=== PATIENT | male | born 1940 | race Caucasian/White ===

== ENCOUNTER → 2024-04-09 08:52 | Outpatient (REF) | payer MEDICARE, OTHER, SELFPAY ==
[2024-04-09 09:53] LABS: % Basophils 0.6 % (0-2); % Eosinophils 1.8 % (0-6); % Immature Granulocytes 0.4 % (0-0.5); % Monocytes 9.9 % (1.7-9.3); % Neutrophils 69.3 % (42.2-75.2); Absolute Basophils 0.1 10^3/uL (0-0.2); Absolute Eosinophils 0.2 10^3/uL (0-0.7); Absolute Lymphocytes 1.9 10^3/uL (1.2-3.4); Absolute Neutrophils 7.2 10^3/uL (1.4-6.5); Hematocrit 38.8 % (39.0-52.0); Hemoglobin 13.3 g/dL (13.0-18.0); Mean Corp Hgb Conc. 34.3 g/dL (33.0-37.0); Mean Corpuscular Hgb 32.8 pg (27.0-31.0); Mean Corpuscular Volume 95.8 fL (80.0-94.0); Nucleated Red Blood Cells % 0 % (-); Platelet Count 252 10^3/uL (130-400); Red Blood Cell Count 4.05 10^6/uL (4.70-6.10); Red Cell Dist. Width 13.7 % (11.5-14.5); White Blood Cell Count 10.4 10^3/uL (4.8-10.8)
[2024-04-09 11:13] LABS: ALT (SGPT) 32 U/L (0-50); AST (SGOT) 34 U/L (17-59); Albumin 4.1 g/dl (3.5-5.0); Alkaline Phosphatase 96 U/L (38-126); Blood Urea Nitrogen 15 mg/dl (9-20); Calcium 9.6 mg/dl (8.4-10.2); Carbon Dioxide 27 mmol/L (22-30); Chloride 105 mmol/L (98-107); Glucose 122 mg/dl (70-99); HDL Cholesterol 44 mg/dl; Iron 64 ug/dl (49-181); LDL Cholesterol, Calculated 75 mg/dl; Sodium 143 mmol/L (135-145); Total Bilirubin 0.8 mg/dl (0.2-1.3); Total Cholesterol 133 mg/dl (50-199); Total Protein 6.5 g/dl (6.3-8.2); Triglyceride 73 mg/dl (10-149); Very Low Density Lipoprotein 14 mg/dl (0-30); eGFR > 60.00
[2024-04-09 11:22] LABS: Percent Saturation 21 % (20-50); Total Iron Binding Capacity 292 ug/dl (261-462)
[2024-04-09 12:01] LABS: Vitamin B12 587 pg/ml (239-931)
[2024-04-09 13:15] LABS: Glycohemoglobin (HgbA1c) 6.1 % (4.0-5.6)
== END ==
LOC: REG 08:52
PROVIDERS: ATTENDING PHYSICIAN Physician Assistant
DX: I10 Essential (primary) hypertension (principal); I25.10 Atherosclerotic heart disease of native coronary artery without angina pectoris; I27.20 Pulmonary hypertension, unspecified; E78.00 Pure hypercholesterolemia, unspecified; G47.33 Obstructive sleep apnea (adult) (pediatric); E66.9 Obesity, unspecified; R97.20 Elevated prostate specific antigen [PSA]; D53.9 Nutritional anemia, unspecified; R73.01 Impaired fasting glucose
CPT/HCPCS: 36415; 80053; 80061; 82607; 82728; 83036; 83540; 83550; 85025; G0103

== ENCOUNTER 2024-08-03 20:04 | Inpatient (IN) | payer MEDICARE, OTHER, SELFPAY ==
[2024-08-03] VITALS (8 sets, daily range): BP systolic 150–198; BP diastolic 71–106; BMI 34.2
--- NOTE | 2024-08-03 16:03 | ED.GENMED ---
ED Provider Triage
<Asuncion Doe, THREAD MACHINE OPERATOR - Last Filed: 08/03/24 16:07>
-
Patient seen by provider in Triage?: Seen in Triage
Attestation: A medical screening examination has been initiated by a qualified medical provider. Based on the assessment performed at this time, it has been determined that an emergent medical condition may exist and the patient has been informed
that further medical evaluation and possible additional diagnostic testing may be needed.
HPI: 84-year-old male sent here from PCP office, saw DORYS Felix who was also in contact with cardiology Dr. Calvo for patient being in new onset atrial fib and high blood pressure.
Pt denies CP, per , has chronic PUGH, denies SOB at this time.
GENERAL: Alert , in no apparent distress
EYE: No visual abnormalities.
NECK: Trachea midline
ENT: No visible abnormalities.
LUNGS: No acute respiratory distress
NEUROLOGICAL: Alert and oriented
SKIN: Skin intact. No visible changes.
MUSCULOSKELETAL: Moving extremities normally
PSYCH: Normal and appropriate interaction.
This is a medical evaluation conducted in person to initiate diagnostic evaluation and provide initial therapeutics. Please see further documentation by the treating clinician.
History of Present Illness
<Asuncion Doe, THREAD MACHINE OPERATOR - Last Filed: 08/03/24 16:07>
General
Chief Complaint: Heart Rate Problem
Time Seen by Provider: 08/03/24 17:17
<Quentin Cohen, DO - Last Filed: 08/03/24 19:22>
General
Source: patient and spouse
Exam Limitations: none
Nursing documentation reviewed up to this point in time: agreed with
History of Present Illness
History of Present Illness:
84-year-old male presents emergency department due to new onset A-fib, elevated blood pressure at home, and not feeling well. He denies any chest pain. He was sent over by his primary care. He follows with Dr. Malik.
Past History
<Asuncion Doe, THREAD MACHINE OPERATOR - Last Filed: 08/03/24 16:07>
Past History
ED Past Medical History: CAD
ED Past Surgical History: None
<Quentin Cohen, DO - Last Filed: 08/03/24 19:22>
Past History
ED Past Medical History: HTN and Hypercholesterolemia
ED Past Surgical History: Cardiac (CABG)
Social History
Tobacco: Former smoker
Alcohol: None
Drug: None
Personal:
Living: with family
Employment: Retired
Review of Systems
<Quentin Cohen, DO - Last Filed: 08/03/24 19:22>
Review of Systems
Allergies reviewed?: Yes
All Other Systems: Not applicable
Constitutional: Reports no symptoms
EENT: Reports no symptoms
Respiratory: Reports no symptoms
Cardiac: Reports no symptoms
ABD/GI: Reports no symptoms
: Reports urgency
Musculoskeletal: Reports no symptoms
Skin: Reports no symptoms
Neurological: Reports no symptoms
Endocrine: Reports no symptoms
Hematologic/Lymphatic: Reports no symptoms
Psychiatric: Reports no symptoms
Phy Exam
<Quentin Cohen, DO - Last Filed: 08/03/24 19:22>
Physical Exam
Physical Exam:
Physical Exam
General: Blood pressure 181/86, heart rate 64
Neck: supple. no meningeal signs. normal posterior pharynx
Heart: s1/s2 irregular rhythm, normal rate, no murmur. equal radial
pulses.
HEENT: Pupils equal round reactive to light, EOMI
Lungs: Rales at bases bilaterally
Abdomen: normal bowel sounds. not tender. no CVAT
Neuro: alert and oriented. no focal neurological deficits cranial nerves II through XII intact
Skin: no rash
Psychiatric: well kept. interactive and cooperative
Extremities: Mild bilateral tibial edema. no calf tenderness. negative homans. good distal pulses
Scores
<Quentin Cohen, DO - Last Filed: 08/03/24 19:22>
Heart Failure Risk
Heart Failure Risk Score: Yes
History of Stroke or TIA: No
History of intubation for respiratory distress: No
Heart rate on ED arrival >/= 110: No
SaO2 <90% on arrival on room air: No
HR >/=110 during 3min walk test (or too ill to perform test): Yes
ECG has acute ischemic changes: No
Urea >/=12mmol/L (BUN 33.6mg/dL): No
Serum CO2>/=35mmol/L: No
Troponin I or T elevated to CO Level (0.4mg/dL): No
NT-proBNP >/=5,000ng/L (5,000pg/ml): No
HF Risk Score: 2
Admission Status: MEDIUM RISK 9.2% Consider observation or discharge to home with homecare & f/u visit to PCP/Electrocardiograph Repairer, or SNF for treatment
Course
<Asuncion Doe, THREAD MACHINE OPERATOR - Last Filed: 08/03/24 16:07>
Orders/Labs/Results
Orders:
Orders
08/03/24 16:06
Electrocardiogram (*1) Urgent
Reason for Study: Atrial Fibrillation
EKG- Treatment ONCE
CR Chest - 2 Views Urgent
Comment:
Reason For Exam: new onset a fib
08/03/24 16:20
Complete Blood Count/With Diff Urgent
Comprehensive Metabolic Panel Urgent
NT-proBNP Urgent
Comment: ADD ON
TSH Reflex To Free T4 Urgent
Troponin I Urgent
08/03/24 17:51
Add On- LAB Urgent
Tests Added?: pro-bnp
Abnormal Lab Results
08/03/24
16:20
WBC 10.9 H 10^3/uL
(4.8-10.8)
RBC 4.12 L 10^6/uL
(4.70-6.10)
Hgb 12.8 L g/dL
(13.0-18.0)
Hct 38.5 L %
(39.0-52.0)
MCH 31.1 H pg
(27.0-31.0)
Absolute Neuts (auto) 7.6 H 10^3/uL
(1.4-6.5)
Absolute Monos (auto) 1.0 H 10^3/uL
(0.1-0.6)
Lymphocytes % 18.8 L %
(20.5-51.1)
Glucose 124 H mg/dl
(70-99)
08/03/24 16:20
08/03/24 16:20
Vital Signs
Initial and Last Documented VS:
Initial Vital Signs
Temp Pulse Resp BP Pulse Ox
97.8 F 64 18 181/86 98
08/03/24 15:59 08/03/24 15:59 08/03/24 15:59 08/03/24 15:59 08/03/24 15:59
Last Documented Vital Signs
Temp Pulse Resp BP Pulse Ox
97.8 F 79 33 157/91 98
08/03/24 15:59 08/03/24 18:30 08/03/24 18:30 08/03/24 18:00 08/03/24 18:40
Harrisonlt;Quentin Cohen, DO - Last Filed: 08/03/24 19:22>
Orders/Labs/Results
Orders:
Orders
08/03/24 16:06
Electrocardiogram (*1) Urgent
Reason for Study: Atrial Fibrillation
EKG- Treatment ONCE
CR Chest - 2 Views Urgent
Comment:
Reason For Exam: new onset a fib
08/03/24 16:20
Complete Blood Count/With Diff Urgent
Comprehensive Metabolic Panel Urgent
NT-proBNP Urgent
Comment: ADD ON
TSH Reflex To Free T4 Urgent
Troponin I Urgent
08/03/24 17:51
Add On- LAB Urgent
Tests Added?: pro-bnp
Abnormal Lab Results
08/03/24
16:20
WBC 10.9 H 10^3/uL
(4.8-10.8)
RBC 4.12 L 10^6/uL
(4.70-6.10)
Hgb 12.8 L g/dL
(13.0-18.0)
Hct 38.5 L %
(39.0-52.0)
MCH 31.1 H pg
(27.0-31.0)
Absolute Neuts (auto) 7.6 H 10^3/uL
(1.4-6.5)
Absolute Monos (auto) 1.0 H 10^3/uL
(0.1-0.6)
Lymphocytes % 18.8 L %
(20.5-51.1)
Glucose 124 H mg/dl
(70-99)
08/03/24 16:20
08/03/24 16:20
Vital Signs
Initial and Last Documented VS:
Initial Vital Signs
Temp Pulse Resp BP Pulse Ox
97.8 F 64 18 181/86 98
08/03/24 15:59 08/03/24 15:59 08/03/24 15:59 08/03/24 15:59 08/03/24 15:59
Last Documented Vital Signs
Temp Pulse Resp BP Pulse Ox
97.8 F 79 33 157/91 98
08/03/24 15:59 08/03/24 18:30 08/03/24 18:30 08/03/24 18:00 08/03/24 18:40
<Quentin Cohen, DO - Last Filed: 08/03/24 19:22>
MDM/Problems Addressed
Differential Diagnosis Includes:
Rapid atrial flutter, CHF exacerbation
MDM/Problems Addressed:
84-year-old male with atrial flutter, new onset, new onset CHF. Admit to hospitalist.
Chronic conditions affecting care: CAD and Cardiomyopathy
Acute Exacerbation and/or Progression of Chronic Illness: CAD, Cardiomyopathy and Arrhythmia
<Quentin Cohen, DO - Last Filed: 08/03/24 19:22>
*Radiology
Radiology exam reviewed: radiology read reviewed (Chest x-ray shows CHF)
*Pulse Oximetry
Patient hypoxic: no
*EKG
Interpreted by ED Provider?: Yes
EKG Intrepretation Date: 08/03/24
EKG Intrepretation Time: 16:10
Interpretation: abnormal
Comparison EKG: changes noted
Heart Rate: 85
Rate: normal
Rhythm: atrial flutter
Gardner: normal axis
Interval: normal interval
QRS Pattern: left bundle branch block
Ischemia: non-specific ST changes
*Warehouse Worker 2Nd Shift Interpretation
Rate: normal
Interpretation: abnormal
Heart Rate: 75
Rhythm: atrial flutter
*Critical Care Note
Total Time (30-74mins, 75-104mins- exclusive of procedures): Not Applicable
Data Reviewed
Review of Other/Old Records Reveals: Labs
Prescriptions/Medications Considered But Not Given:
Cardioversion considered, but not indicated, unclear onset of atrial flutter
Further Testing Considered But Not Given:
CT chest not indicated
<Quentin Cohen, DO - Last Filed: 08/03/24 19:22>
Patient Management
Social determinants of health affecting care: Living situation and Strong social support
Discussion with other providers: Hospitalist
Escalation/DeEscalation of care consider admission/obs:
Admission indicated
ED Attending Note
<Asuncion Doe NP - Last Filed: 08/03/24 16:07>
-
Portions of this chart may have been created with voice recognition software.� Occasional wrong word or��sound alike� substitutions may have occurred due to the inherent limitations of voice recognition software.
Discharge Plan
Departure
Patient Disposition: Admit
Date of Disposition: 08/03/24
Time of Disposition: 19:21
Admit to: Telemetry
Presentation/result/management discussed w/ accepting MD/DO: Hospitalist
Patient with high blood pressure during this ER visit?: Yes
Condition: Fair
Discharge Problem:
Atrial flutter, Acute exacerbation of CHF (congestive heart failure)
Prescriptions:
No Action
metoprolol tartrate 50 MG tablet
50 mg PO BID Qty: 60 0RF
Referrals:
Diann Canales PA-C [Family Provider] -
Interventions
Interventions:
*Risk Screen - Suicide Last Done: 08/03/24 15:59
*General Assessment Last Done: 08/03/24 15:59
*Neglect/Abuse Screening Last Done: 08/03/24 15:59
ED- Fall Risk Assessment Last Done: 08/03/24 18:40
*ED COVID-19 Vaccine History Last Done: 08/03/24 18:40
ED- Cardiac Assessment Last Done: 08/03/24 18:40
ED- Pulmonary Assessment Last Done: 08/03/24 18:40
Discharge Date and Time
Print Language: WOLOF
[2024-08-03 16:29] LABS: % Basophils 0.5 % (0-2); % Eosinophils 1.7 % (0-6); % Immature Granulocytes 0.4 % (0-0.5); % Lymphocytes 18.8 % (20.5-51.1); % Monocytes 9.2 % (1.7-9.3); % Neutrophils 69.4 % (42.2-75.2); Absolute Basophils 0.1 10^3/uL (0-0.2); Absolute Eosinophils 0.2 10^3/uL (0-0.7); Absolute Lymphocytes 2.1 10^3/uL (1.2-3.4); Absolute Neutrophils 7.6 10^3/uL (1.4-6.5); Hematocrit 38.5 % (39.0-52.0); Hemoglobin 12.8 g/dL (13.0-18.0); Mean Corp Hgb Conc. 33.2 g/dL (33.0-37.0); Mean Corpuscular Hgb 31.1 pg (27.0-31.0); Mean Corpuscular Volume 93.4 fL (80.0-94.0); Mean Platelet Volume 9.3 fL (7.4-10.4); Nucleated Red Blood Cells % 0 % (-); Platelet Count 248 10^3/uL (130-400); Red Blood Cell Count 4.12 10^6/uL (4.70-6.10); Red Cell Dist. Width 13.1 % (11.5-14.5); White Blood Cell Count 10.9 10^3/uL (4.8-10.8)
[2024-08-03 16:51] LABS: ALT (SGPT) 33 U/L (0-50); AST (SGOT) 31 U/L (17-59); Albumin 4.3 g/dl (3.5-5.0); Alkaline Phosphatase 95 U/L (38-126); Blood Urea Nitrogen 16 mg/dl (9-20); Calcium 9.6 mg/dl (8.4-10.2); Carbon Dioxide 26 mmol/L (22-30); Chloride 106 mmol/L (98-107); Glucose 124 mg/dl (70-99); Potassium 4.9 mmol/L (3.5-5.1); Sodium 142 mmol/L (135-145); Total Bilirubin 1.3 mg/dl (0.2-1.3); Total Protein 7.1 g/dl (6.3-8.2); eGFR > 60.00
[2024-08-03 17:03] LABS: Troponin I < 0.012 ng/ml
[2024-08-03 17:22] LABS: TSH Reflex To Free T4 4.58 uIU/ml (0.47-4.68)
[2024-08-03 18:35] LABS: NT-proBNP 1190 pg/ml
--- NOTE | 2024-08-03 19:25 | HPS.HSE ---
Addendum entered and electronically signed by Manny Bermeo DO 08/03/24 20:38:
Patient seen and examined independently. Agree with findings and plan as set forth by JOSE Sethi.
Patient is an 84y M with PMH significant for ASCVD, hypertension and BPH who presents to ED for evaluation of abnormal EKG. Patient states that he has been feeling somewhat weak / fatigued for the past several days. He took his BP at home and
noted that it was elevated in the 170s systolic - which is unusual for him. He presented to his PCP office today for evaluation. EKG was done there which showed A-Fib / Flutter and patient was referred to the ED for evaluation.
Patient complains of an odd sensation in his chest. He denies any chest pain, palpitations, SOB, etc.
He has no prior history of A-Fib.
He was previously followed by [facility] - but was lost to follow-up about 2 years ago.
Ass:
New A-Fib / Flutter
Acute HF - Unknown Type
ASCVD
Benign Hypertension
FATUMA - Not compliant with PAP therapy
BPH
Obesity due to excess calories
Plan:
Admit for further evaluation and treatment.
IV Lasix daily for now and follow I/Os, daily weights, etc.
Update Echo.
Cardiology evaluation.
Continue usual outpatient CV med regimen with holding parameters for BP.
No need at present for rate controlling medications.
Begin Eliquis for stroke risk reduction.
Original Note:
Family Physician
-
Family Physician: Diann Canales
Chief Complaint
-
Fatigue
Hypertension
History of Present Illness
84-year-old male with past medical history for coronary artery disease status post CABG, hypertension, hyperlipidemia, BPH presented to us with elevated blood pressure. For past few days, his blood pressure were elevated in 170s. Patient was
feeling very fatigued and weak. He saw his PCP today, he was noted in A-fib at PCP office. his blood pressure were elevated. Patient denied any chest pain or short of breath. Patient denied any lower extremities edema or weight gain. Patient
denied any headache, dizziness or syncope. Patient denied any fever, chills. Patient denied any abdominal pain, nausea, vomiting, diarrhea. Patient denied dysuria hematuria
He was noted in A flutter in ER. Heart rate controlled. Chest x-ray with mild CHF. Patient received a dose of Lasix in ER. Admitting for further management
Medical History
Past Medical History
Past Medical History: Reports Other
Additional Past Medical History:
Hypertension
Diabetes
Left bundle branch block
Coronary artery disease
CVA
Sinus bradycardia
Hypertension
Past Surgical History: Reports Other
Additional Past Surgical History:
Status post coronary artery bypass graft
Bilateral cataract surgery
Detached continued
Angioplasty
Social History
Tobacco: Former Smoker
Alcohol: Daily (1-2 beers daily)
Drug: None
Personal:
Living: With Family
Family History
Family History: Not pertinent
Allergies / Home Medications
Allergies reflects when Allergies were last updated in [employer].
Home Medications with original date entered in [employer]
Allergy/Medication List:
Allergies
Allergy/AdvReac Type Severity Reaction Status Date / Time
[facility] Allergy Pharmacy Uncoded 08/03/24 15:48
to Review
Home Medications
ascorbic acid (vitamin C) 500 mg tablet (Vitamin C) 500 mg PO BID 08/03/24
aspirin 81 mg tablet,delayed release 81 mg PO DAILY 08/03/24
atorvastatin 80 mg tablet 80 mg PO DAILY 08/03/24
coenzyme Q10 100 mg capsule (CoQ-10) 100 mg PO BID 08/03/24
ezetimibe 10 mg tablet 10 mg PO DAILY 08/03/24
isosorbide mononitrate 60 mg tablet,extended release 24 hr 60 mg PO DAILY 08/03/24
lisinopril 40 mg tablet 40 mg PO DAILY 08/03/24
magnesium oxide 200 mg PO HS 08/03/24
nitroglycerin 0.4 mg sublingual tablet 0.4 mg sublingual [id number] PRN chest pain 08/03/24
omega 9-ddw-kpz-fish oil 1,000 mg (120 mg-180 mg) capsule (Fish Oil) 1 cap PO BID 08/03/24
tamsulosin 0.4 mg capsule 0.4 mg PO HS 08/03/24
therapeutic multivitamin 1 tab PO DAILY 08/03/24
vitamin K2 100 mcg capsule 100 mcg PO HS 08/03/24
Review of Systems
-
Constitutional: Reports Fatigue
EENT: Reports No Symptoms
Respiratory: Reports No Symptoms
Cardiac: Reports No Symptoms
Abdomen/GI: Reports No Symptoms
: Reports No Symptoms
Musculoskeletal: Reports No Symptoms
Skin: Reports No Symptoms
Neurological: Reports Weakness
Endocrine: Reports No Symptoms
Hematologic/Lymphatic: Reports No Symptoms
Psych: Reports No Symptoms
Physical Exam
Vital Signs
Vital Signs
Temp Pulse Resp BP Pulse Ox
97.8 F 79 33 157/91 98
08/03/24 15:59 08/03/24 18:30 08/03/24 18:30 08/03/24 18:00 08/03/24 18:40
Physical Exam
General: Well Developed, Well Nourished and No Apparent Distress
HEENT: NormoCephalic, Moist mucous membranes and Atraumatic
Respiratory: Clear
Cardiac: Irregular Rhythm; No Murmur or Rub
GI: Soft, Non Tender, Non Distended and Normal Bowel Sounds; No Organomegaly
Rectal: Deferred by Provider
Musculoskeletal: No Clubbing, No Cyanosis and No Edema
Skin: No Rash
Neuro: AO x 3 and Nonfocal/grossly intact
Psych: Calm
Laboratory Results
-
08/03/24 16:20
08/03/24 16:20
Laboratory Results
Total Bilirubin 1.3 mg/dl (0.2-1.3) 08/03/24 16:20
AST 31 U/L (17-59) 08/03/24 16:20
ALT 33 U/L (0-50) 08/03/24 16:20
Alkaline Phosphatase 95 U/L (38-126) 08/03/24 16:20
Troponin I < 0.012 ng/ml 08/03/24 16:20
Data Reviewed
-
Diagnostic Radiology: Report Reviewed by me
Lab Data: Labs Reviewed by me
Impression/Plan
-
# New onset a flutter
-EKG with a flutter with variable AV block with PVCs, left bundle branch block
-Heart rate controlled in ER
-started eliquis
-Cardiology consulted
# New onset congestive heart failure
-BNP 1190
-Chest x-ray with mild congestive heart failure
-Lasix once in ER
-defer lasix until seen by cardiology
-Strict ODALIS, daily weight, fluid restriction
-obtain ECHO
-Cardiology consulted
-last ECHO in 07/2021 with Low-normal systolic function; left ventricular ejection fraction is 50-55%
# Leukocytosis likely stress reaction
-WBC 10.9
-Patient is afebrile
-obtain urinalysis
# History of coronary artery disease
# History of coronary bypass graft
-Aspirin continued
# Hyperlipidemia
-Statin continued, Zetia continued
# Hypertension
-Isosorbide, lisinopril continued with hold parameters
# BPH
-Flomax continued
#FATUMA
-does not use c pap at home
# DVT prophylaxis
-eliquis
# CODE STATUS
-DNR
[2024-08-03] MEDS: LASIX 40 MG IV (20:00)
[2024-08-03 21:00] LABS: Urine Albumin Negative (Neg - Trace); Urine Bilirubin Negative (Negative); Urine Character Clear (Clear); Urine Color Yellow; Urine Glucose Negative (Negative); Urine Ketone Negative (Negative); Urine Leukocyte Negative (Negative); Urine Nitrite Negative (Negative); Urine Occult Blood Negative (Negative); Urine Urobilinogen Negative (Neg - 1+)
[2024-08-04] VITALS (8 sets, daily range): BP systolic 124–181; BP diastolic 54–82; BMI 33.0; BMI 32.9
--- NOTE | 2024-08-04 00:45 | PTCARENOTE ---
Pt recieved from ED at 0040. Pt pleasant, AAOX3, Absent of pain, VVS, and able to ambulate into room. Pt recpetive to room and call blackman. Pt bed in lowest position and call blackman within reach. Pt educated on importance of call blackman usage, pt relays
understanding and cooperation. Will continue with current plan of care.
[2024-08-04] MEDS: MAGNESIUM OXIDE 250 MG PO ×2 (01:24→21:58)
[2024-08-04] MEDS: FLOMAX 0.4 MG PO ×2 (01:24→21:58)
[2024-08-04] MEDS: ELIQUIS 5 MG PO ×3 (01:25→19:38)
--- NOTE | 2024-08-04 07:51 | CON.CAR ---
Addendum entered and electronically signed by Luke Gutierrez MD 08/05/24 11:15:
Atrial flutter is typical atrial flutter.
Addendum entered and electronically signed by Luke Gutierrez MD 08/04/24 12:38:
I saw and examined the patient.
The [employer] FLOOR [employer]NER's note was reviewed and I agree with the note.
Comment:
84-year-old man known to Dr. Malik with coronary artery disease status post CABG 2009, hypertension, dyslipidemia who presented to his PCP yesterday with a week of fatigue. He was found to be in new rate controlled atrial fibrillation so was
sent to the ER. He has been notably hypertensive with BPs 150s�180s/70s�100s. Heart rate has ranged from 60s to 100s. Labs are notable for creatinine 0.9, LDL 71, BNP 1190, troponin <0.012. CXR with minimal pulmonary edema. ECG shows atrial
flutter with variable block (HR 85), left bundle branch block. Echocardiogram with mildly reduced LV systolic function (EF 45%), global hypokinesis, normal RV function. His heart rate in atrial flutter is widely variable between 60 and 110. We
will not add any AV yudith blocking agents at this time given that heart rate is sometimes in the 50s. We will plan for ANDREW/cardioversion tomorrow. He has been started on apixaban 5 mg twice daily and will continue on this after discharge. Case
management to check pricing. I suspect that his EF is mildly reduced in the setting of arrhythmia. Would repeat echocardiogram as an outpatient once he is out of atrial flutter prior to initiating GDMT. He is being diuresed with Lasix 40 mg IV
daily. Can likely switch to p.o. chlorthalidone tomorrow which will help with volume retention and BPs. For his hypertension, he will continue lisinopril 40 mg daily and isosorbide 60 mg daily. After cardioversion we can see what his heart rates
are and potentially add carvedilol. Given his LDL above goal, we will switch his atorvastatin 80 mg to rosuvastatin 40 mg and continue ezetimibe. He can stop his aspirin given that he will be on systemic anticoagulation.
Addendum entered and electronically signed by JOSE Briggs 08/04/24 11:35:
Correction to below, in impression/plan it should read LBBB.
Original Note:
Consultation
Consultation Request
Date/Time Consultation Requested: 08/04/2024 00:45
Date/Time Consultation Performed: 08/04/2024 07:50
Requesting Provider: JOSE Sethi
Performing Provider: JOSE Godoy for Dr. Gutierrez
Reason for Consultation: New atrial flutter, HFpEF
Medical History
-
Chief Complaint: New atrial fibrillation found by PCP, fatigue, hypertension
History of Present Illness:
Naren Mckenzie is an 84-year-old male (known to Dr. Malik, his primary dentistry teacher), with coronary artery disease (2 previous angioplasties, specifics unknown, CABG 2009 in [place]), hypertension, dyslipidemia, PVD (no prior interventions), DJD, former
smoker, and obesity who presented to the emergency department after being evaluated by his PCP yesterday. He initially presented due to elevated blood pressure at home. He then endorsed fatigue. His commented on his shortness of breath. He
did not feel it was 'that bad'. He was found to be in atrial flutter, onset unknown. At present, he has no chest pain, shortness of breath, nor dizziness.
Past Medical History
Past Medical History: CAD, HTN, Hypercholesterolemia, NIDDM and Other (LBBB, FATUMA on CPAP, PVD)
Past Surgical History: Cardiac (CABG)
Social History
Tobacco: Former Smoker
Personal:
Living: With Family
Employment: Retired
Family History
Family History: Early CAD (Brother of an [place] at the age of 52.) and Other (Mother of heart failure at the age of 63. Father had myasthenia gravis and at the age of 82.)
Allergies / Home Medications
Allergy/AdvReac Type Severity Reaction Status Date / Time
[facility] Allergy Pharmacy Uncoded 08/03/24 15:48
to Review
�Medication �Instructions �Recorded �Confirmed �Type
ascorbic acid (vitamin C) 500 mg 500 mg PO BID 08/03/24 08/03/24 History
tablet (Vitamin C)
aspirin 81 mg tablet,delayed 81 mg PO DAILY 08/03/24 08/03/24 History
release
atorvastatin 80 mg tablet 80 mg PO DAILY 08/03/24 08/03/24 History
coenzyme Q10 100 mg capsule 100 mg PO BID 08/03/24 08/03/24 History
(CoQ-10)
ezetimibe 10 mg tablet 10 mg PO DAILY 08/03/24 08/03/24 History
isosorbide mononitrate 60 mg 60 mg PO DAILY 08/03/24 08/03/24 History
tablet,extended release 24 hr
lisinopril 40 mg tablet 40 mg PO DAILY 08/03/24 08/03/24 History
magnesium oxide 200 mg PO HS 08/03/24 08/03/24 History
nitroglycerin 0.4 mg sublingual 0.4 mg sublingual [id number] PRN 08/03/24 08/03/24 History
tablet chest pain
omega 6-miv-dsq-fish oil 1,000 mg 1 cap PO BID 08/03/24 08/03/24 History
(120 mg-180 mg) capsule (Fish Oil)
tamsulosin 0.4 mg capsule 0.4 mg PO HS 08/03/24 08/03/24 History
therapeutic multivitamin 1 tab PO DAILY 08/03/24 08/03/24 History
vitamin K2 100 mcg capsule 100 mcg PO HS 08/03/24 08/03/24 History
Review of Systems
-
History Source: Patient
All other systems: Negative unless noted
Constitutional: Fatigue
EENT: No Symptoms
Respiratory: No Symptoms
Cardiac: No Symptoms
Abdomen/GI: No Symptoms
: No Symptoms
Musculoskeletal: No Symptoms
Skin: No Symptoms
Neurological: No Symptoms
Endocrine: No Symptoms
Hematologic/Lymphatic: No Symptoms
Physical Exam
Vital Signs
Temp Pulse Resp BP Pulse Ox
98.6 F 81 18 157/82 96
08/04/24 03:00 08/04/24 03:00 08/04/24 03:00 08/04/24 03:00 08/04/24 03:00
Lab Results
Troponin I < 0.012 ng/ml 08/03/24 16:20
Uwy-I-Othvtzhyyaa Pept 1190 pg/ml 08/03/24 16:20
Physical Exam
General: Well Developed, Well Nourished, No Apparent Distress and Comfortable
HEENT: Normocephalic, Anicteric and Moist Mucous Membranes
Respiratory: Clear and Non Labored Respirations
Cardiac: S1/S2 and Regular Rhythm
Breast: Deferred by me
GI: Soft, Non Tender, Non Distended and Normal Bowel Sounds
Rectal: Deferred by Provider
Genito-urinary: No Costovertebral Tender
Musculoskeletal: No Clubbing, No Cyanosis and No Edema
Skin: Warm and Dry
Neuro: AO x 3
Hematologic/Lymphatic: No Lymphadenopathy
Psych: Calm
Impression / Plan
-
IMPRESSION/PLAN: 84M with CAD (2 previous angioplasties, specifics unknown, CABG 2009 in [place]), hypertension, dyslipidemia, PVD (no prior interventions), DJD, former smoker, and obesity who presented to the ER with new atrial flutter and PUGH ->
HFpEF
Primary dentistry teacher: Dr. Malik (last seen 07/2021)
Heart failure, presumed HFpEF, acute - NEW
-Diuresis with furosemide 40 mg IV twice daily
-Trend daily weight, I/O, and BMP with diuresis
-Case management to bermudez SGLT2
-Update echocardiogram
-HF education
Atrial flutter, onset unknown
-Rate controlled without AV yudith agent
-Oral Anticoagulation: Apixaban 5 mg twice daily, started this hospitalization
-[id number]: score at least 6 (Heart failure, HTN, age 75 or more, Diabetes Mellitus, Vascular disease)
-ANDREW/DCCV in am if TTE stable
CAD
-CABG in 2009 in [place], stop ASA now that he is on apixaban
-Continue medical therapy
HTN
-BP above goal on lisinopril 40mg and isosorbide mononitrate 60 mg
HLD, continue atorvastatin, most recent LDL by PCP above goal, transition to rosuvastatin, update fasting lipid panel as an outpatient in 8 weeks
RBBB, chronic
Type II DM, controlled, Hgba1c 6.1%, managed by PCP
PVD
Former smoker, continue cessation recommended
FATUMA on CPAP
Obesity, BMI 32.9
Data Reviewed
-
EKG: Report Reviewed by me (Atrial flutter with variable AV block, LBBB, rate 85)
Radiology: Report Reviewed by me (CXR: There is moderate cardiomegaly. Mild vascular congestion. Subtle interstitial prominence.)
Labs: Labs Reviewed by me
Old Records: Reviewed
[2024-08-04 08:11] LABS: % Basophils 0.8 % (0-2); % Eosinophils 2.3 % (0-6); % Immature Granulocytes 0.3 % (0-0.5); % Lymphocytes 18.5 % (20.5-51.1); % Neutrophils 65.1 % (42.2-75.2); Absolute Basophils 0.1 10^3/uL (0-0.2); Absolute Eosinophils 0.2 10^3/uL (0-0.7); Absolute Lymphocytes 1.8 10^3/uL (1.2-3.4); Absolute Monocytes 1.2 10^3/uL (0.1-0.6); Absolute Neutrophils 6.2 10^3/uL (1.4-6.5); Hematocrit 39.7 % (39.0-52.0); Hemoglobin 13.1 g/dL (13.0-18.0); Mean Corpuscular Hgb 31.3 pg (27.0-31.0); Mean Corpuscular Volume 94.7 fL (80.0-94.0); Mean Platelet Volume 10.1 fL (7.4-10.4); Nucleated Red Blood Cells % 0 % (-); Platelet Count 250 10^3/uL (130-400); Red Blood Cell Count 4.19 10^6/uL (4.70-6.10); White Blood Cell Count 9.5 10^3/uL (4.8-10.8)
[2024-08-04] MEDS: ASPIR LOW (ENTERIC COATED) 81 MG PO (08:50)
[2024-08-04] MEDS: ZETIA 10 MG PO (08:51)
[2024-08-04] MEDS: IMDUR (EXTENDED RELEASE) 60 MG PO (08:51)
[2024-08-04] MEDS: ZESTRIL 40 MG PO (08:51)
[2024-08-04] MEDS: LASIX 40 MG IV (08:53)
[2024-08-04 08:55] LABS: ALT (SGPT) 31 U/L (0-50); AST (SGOT) 29 U/L (17-59); Albumin 4.1 g/dl (3.5-5.0); Alkaline Phosphatase 90 U/L (38-126); Blood Urea Nitrogen 17 mg/dl (9-20); Calcium 9.2 mg/dl (8.4-10.2); Carbon Dioxide 27 mmol/L (22-30); Chloride 105 mmol/L (98-107); Direct Bilirubin 0.1 mg/dl (0.0-0.4); Estimated Creatinine Clearance 80 ml/min; Glucose 106 mg/dl (70-99); HDL Cholesterol 32 mg/dl; LDL Cholesterol, Calculated 71 mg/dl; Magnesium 1.8 mg/dl (1.6-2.3); Potassium 4.1 mmol/L (3.5-5.1); Sodium 143 mmol/L (135-145); Total Bilirubin 1.4 mg/dl (0.2-1.3); Total Cholesterol 117 mg/dl (50-199); Total Protein 6.6 g/dl (6.3-8.2); Triglyceride 74 mg/dl (10-149); Very Low Density Lipoprotein 14 mg/dl (0-30); eGFR > 60.00
[2024-08-04 10:25] LABS: TSH Reflex To Free T4 3.19 uIU/ml (0.47-4.68)
[2024-08-04] MEDS: ISMO 30 MG PO (10:48)
--- NOTE | 2024-08-04 12:02 | CM ---
CM reviewed chart, patient seen bedside, initial assessment completed. Patient resides with his in a single story home with basement, unsure how many steps to enter, reports they are new to the home. Patient has a cane, denies VN or SNF
history. Patient PCP Diann Canales, pharmacy [facility] in [place]. Patient denies insecurities at home. CM received consult for medication pricing: Eliquis 5 mg 2x daily, Farxiga 10 mg daily, Jardiance 10 mg daily. Patient reports recently
switching prescription plan, will need to get name of plan/member ID and will provide to CM, then will check coverage of medications. CM will continue to follow for all discharge planning needs.
Plan; home with , need to check cost of medication once patient confirms prescription plan
--- NOTE | 2024-08-04 16:47 | W.PN.HOSP.TC ---
Today's Communication/Plan
-
Assessment / Plan
Assessment / Plan
Acute HFmildly reduced EF, 45%, NYHA class II-IV
-2d echo global hypokinesis
-Related to arrhythmia
-IV diuretics
-Monitor UOP
-Follow renal function
Aflutter, new dx
-Unable to start AV yudith blocking agents
-Monitor
-Plan for ANDREW/DCCV
-CHADSVASC - 6
-Eliquis 5mg BID
CAD
-CABG, per Cards stop asa as now on eliquis
BPH
-COntinue flomax
FATUMA
-Noncomplaint CPAP
Anticipated Discharge: > 48 hours
Subjective/Interval History
-
Date of Service: August 04, 2024
seen and examined
no new comaplints
still in afib on tele
-rates between 50-110
Objective Data
-
Labs:
Laboratory Results
08/04/24
06:54
WBC 9.5
Hgb 13.1
Hct 39.7
Plt Count 250
Sodium 143
Potassium 4.1
Chloride 105
Carbon Dioxide 27
BUN 17
Creatinine 0.9
Glucose 106 H
Calcium 9.2
Total Bilirubin 1.4 H
AST 29
ALT 31
Alkaline Phosphatase 90
Vital Signs:
Vital Signs
Temp Pulse Resp BP Pulse Ox
98.0 F 69 16 124/61 94
08/04/24 15:41 08/04/24 15:41 08/04/24 15:41 08/04/24 15:41 08/04/24 15:41
I&O
08/03/24 08/04/24 08/05/24
06:59 06:59 06:59
Intake Total 120 / 120
Output Total 1100 / 1100
Balance -980 / -980
Physical Exam
-
General: Well Developed and Well Nourished
HEENT: Normocephalic and Atraumatic
Respiratory: Clear to Auscultation
Cardiac: S1/S2 and Irregular Rhythm
GI: Soft, Nontender, Nondistended and Normal Bowel Sounds
Musculoskeletal: No Edema
Skin: Warm
Neuro: Awake, Alert, Oriented and AO x 3
Hematologic / Lymphatic: Lymphadenopathy
[2024-08-04] MEDS: CRESTOR 40 MG PO (17:14)
[2024-08-05 03:05] VITALS: BP 128/66
[2024-08-05 06:00] VITALS: BMI 32.8
[2024-08-05 07:30] VITALS: BP 167/83
[2024-08-05 08:25] LABS: % Basophils 0.5 % (0-2); % Eosinophils 2.2 % (0-6); % Immature Granulocytes 0.4 % (0-0.5); % Lymphocytes 21.6 % (20.5-51.1); % Monocytes 11.3 % (1.7-9.3); Absolute Basophils 0.1 10^3/uL (0-0.2); Absolute Eosinophils 0.2 10^3/uL (0-0.7); Absolute Lymphocytes 2.2 10^3/uL (1.2-3.4); Absolute Monocytes 1.2 10^3/uL (0.1-0.6); Absolute Neutrophils 6.6 10^3/uL (1.4-6.5); Hemoglobin 13.3 g/dL (13.0-18.0); Mean Corp Hgb Conc. 34.1 g/dL (33.0-37.0); Mean Corpuscular Hgb 31.6 pg (27.0-31.0); Mean Corpuscular Volume 92.6 fL (80.0-94.0); Mean Platelet Volume 9.6 fL (7.4-10.4); Nucleated Red Blood Cells % 0 % (-); Platelet Count 259 10^3/uL (130-400); Red Blood Cell Count 4.21 10^6/uL (4.70-6.10); Red Cell Dist. Width 12.9 % (11.5-14.5); White Blood Cell Count 10.2 10^3/uL (4.8-10.8)
[2024-08-05] MEDS: LASIX 40 MG IV (08:52)
[2024-08-05] MEDS: IMDUR (EXTENDED RELEASE) 60 MG PO (08:53)
[2024-08-05] MEDS: ELIQUIS 5 MG PO (08:53)
[2024-08-05] MEDS: ZESTRIL 40 MG PO (08:53)
[2024-08-05] MEDS: ZETIA 10 MG PO (08:53)
[2024-08-05 09:11] LABS: Blood Urea Nitrogen 25 mg/dl (9-20); Calcium 9.5 mg/dl (8.4-10.2); Carbon Dioxide 24 mmol/L (22-30); Chloride 101 mmol/L (98-107); Estimated Creatinine Clearance 72 ml/min; Glucose 123 mg/dl (70-99); Potassium 4.1 mmol/L (3.5-5.1); Sodium 137 mmol/L (135-145); eGFR > 60.00
--- NOTE | 2024-08-05 10:27 | CM ---
Addendum entered by Ebonie Greenberg 08/05/24 14:58:
Patient seen bedside, for discharge today. Patient declining VN services at home. CM placed call to patients pharmacy- informed cost of Eliquis $295.63. Patient provided with coupon for 30 day trial. Per pharmacy- patient has Medicare part D. Per
patient, he recently changed prescription plans and is unsure of the plan. Patient aware to bring coupon to pharmacy. will provide transportation home.
Original Note:
CM reviewed chart, patient seen bedside. Patient reports he was unable to get prescription information yesterday- will call his now. Patient reports as he just transitioned to a new plan, his pharmacy does not have the information yet. CM
offered to call , patient declining and will call himself. CM will return to get prescription information to check cost of medications. CM will continue to follow for all discharge planning needs.
Plan; home with , need to check cost of prescriptions once information received.
--- NOTE | 2024-08-05 10:59 | PN.CDI ---
CDI
- -
CDI:
Physician Documentation Request
Admit Date: 08/03/24 20:04
Dear Cardiology,
Please review the following and provide your response in the progress notes.
Clinical Indicators:
- 08/04 Cardiology 'New atrial flutter'
- 'ECG shows atrial flutter with variable block...heart rate in atrial flutter is widely variable between 60 and 110'
- 08/03 EKG with atrial flutter with variable A-V block with PVCs, LBBB
- Atrial rate 250
If possible, please provide further specificity regarding atrial flutter, such as:
Typical Atrial Flutter - Type I: Classic or common atrial flutter, Rate is 240-340 beats/min. Usually responds to atrial pacing.
Atypical Atrial Flutter - Type II: Less common and more unstable. Rate is 340-440 beats/min. Less responsive to atrial pacing.
Other - please specify
Use of terms such as suspected, likely, concern for, or probable (associated with a specific diagnosis that is being evaluated, monitored, or treated as if it exists) are acceptable and can be coded in the inpatient setting, when documented at the
time of discharge.
Thank you,
Og Snowden RN
CDI Specialist
Please use your independent medical judgment in providing your response.
[2024-08-05 11:00] VITALS: BP 152/76
--- NOTE | 2024-08-05 13:02 | W.PN.CD ---
Today's Communication / Plan
-
ANDREW/DCCV today
assess for d/c in afternoon
continue eliquis 5mg bid
Impression / Plan
-
IMPRESSION/PLAN: 84M with CAD (2 previous angioplasties, specifics unknown, CABG 2009 in [place]), hypertension, dyslipidemia, PVD (no prior interventions), DJD, former smoker, and obesity who presented to the ER with new atrial flutter and PUGH ->
HFpEF
Primary treatment manager: Dr. Malik (last seen 07/2021)
Heart failure, mEF 45%
-improved s/p IV lasix
-transition to PO diuretic
-will repeat echo as outpatient in 4 weeks
Atrial flutter, typical
-Rate controlled without AV yudith agent
-Oral Anticoagulation: Apixaban 5 mg twice daily, started this hospitalization
-[id number]: score at least 6 (Heart failure, HTN, age 75 or more, Diabetes Mellitus, Vascular disease)
-ANDREW/DCCV today
CAD
-CABG in 2009 in [place], stopped ASA now that he is on apixaban
-Continue medical therapy
HTN
-BP above goal on lisinopril 40mg and isosorbide mononitrate 60 mg
-chlorthalindone added this admission
HLD: most recent LDL by PCP above goal, transition to rosuvastatin, update fasting lipid panel as an outpatient in 8 weeks
RBBB, chronic
Type II DM, controlled, Hgba1c 6.1%, managed by PCP
PVD
Former smoker, continue cessation recommended
FATUMA on CPAP
Obesity, BMI 32.9
Physical Exam
Vital Signs/Labs
Vital Signs
Temp Pulse Resp BP Pulse Ox
97.7 F 64 18 152/76 95
08/05/24 11:00 08/05/24 11:00 08/05/24 11:00 08/05/24 11:00 08/05/24 11:00
08/04/24 08/05/24 08/06/24
06:59 06:59 06:59
Actual Weight 109.996 kg 109.571 kg
08/05/24 07:37
08/05/24 07:37
Magnesium 1.8 mg/dl (1.6-2.3) 08/04/24 06:54
Triglycerides 74 mg/dl (10-149) 08/04/24 06:54
LDL Cholesterol, Calc 71 mg/dl 08/04/24 06:54
VLDL Cholesterol, Calc 14 mg/dl (0-30) 08/04/24 06:54
HDL Cholesterol 32 mg/dl 08/04/24 06:54
08/03/24
16:20
[id number] Pept 1190
LAB Results
08/03/24
16:20
Troponin I < 0.012
Physical Exam
Constitutional: No acute distress
EENT: Moist mucous membranes
Cardiovascular: Pedal edema is absent, JVD pressure is normal, Systolic murmur absent and Rhythm/rate is irregular
Respiratory: Respiratory effort normal and Lungs clear to auscul.
Neuro/Psych: AO x 3
Data Reviewed
-
Date of Service: August 05, 2024
Echo: Report Reviewed by me (TTE: EF 45%, no sig valve disease)
Labs: Labs Reviewed by me
--- NOTE | 2024-08-05 13:24 | W.PN.HOSP.TC ---
Today's Communication/Plan
-
For ANDREW/DCCV.
If successfully converted then can likely be discharged pending clearance from cardiology
No AV yudith blocking agents
Aspirin was discontinued
Started on Eliquis
Chlorthalidone was added onto antihypertensive regimen
Atorvastatin was discontinued
Crestor was started
More than 30 minutes spent in discharge including
Final examination of the patient
Summarizing hospital stay
Instructions for continuing care to all relevant caregivers
Preparation of discharge records, prescriptions, and referral forms
Total time spent (in minutes): 33min
Assessment / Plan
Assessment / Plan
Acute HFmildly reduced EF, 45%, NYHA class II-IV
-2d echo global hypokinesis
-Related to arrhythmia
-IV diuretics
-Monitor UOP
-Follow renal function
Aflutter, new dx
-Unable to start AV yudith blocking agents
-Monitor
-Plan for ANDREW/DCCV
-CHADSVASC - 6
-Eliquis 5mg BID
CAD
-CABG, per Cards stop asa as now on eliquis
BPH
-COntinue flomax
FATUMA
-Noncomplaint CPAP
Anticipated Discharge: Today
Subjective/Interval History
-
Date of Service: August 05, 2024
Seen and examined. Had just moved his bowels. No new complaints. No acute overnight events. Just waiting to go for ANDREW/DCCV
Objective Data
-
Labs:
Laboratory Results
08/05/24
07:37
WBC 10.2
Hgb 13.3
Hct 39.0
Plt Count 259
Sodium 137
Potassium 4.1
Chloride 101
Carbon Dioxide 24
BUN 25 H
Creatinine 1.0
Glucose 123 H
Calcium 9.5
Vital Signs:
Vital Signs
Temp Pulse Resp BP Pulse Ox
97.7 F 64 18 152/76 95
08/05/24 11:00 08/05/24 11:00 08/05/24 11:00 08/05/24 11:00 08/05/24 11:00
I&O
08/04/24 08/05/24 08/06/24
06:59 06:59 06:59
Intake Total 120 / 120 840 / 840
Output Total 1100 / 1100 800 / 800
Balance -980 / -980 40 / 40
Physical Exam
-
General: Well Developed, Well Nourished and No Apparent Distress
HEENT: Normocephalic and Atraumatic
Respiratory: Clear to Auscultation
Cardiac: S1/S2 and Irregular Rhythm
GI: Soft and Nontender
Skin: Warm
Neuro: Awake, Alert, Oriented and AO x 3
Psych: Calm
--- NOTE | 2024-08-05 13:27 | W.DCSUMMARY ---
Addendum entered and electronically signed by Dougie Reyes MD 08/08/24 17:32:
Acute HFmildly reduced EF, 45%, NYHA class II-IV
Original Note:
Discharge Summary
Discharge Data
Date of Admission: 08/03/24
Date of Discharge: 08/05/24
-
Pending Results: No
Hospital Course
84y M with PMH significant for ASCVD, hypertension and BPH
Presented with new onset atrial flutter with associated dyspnea on exertion concerning for acute on chronic HFpEF exacerbation. Significant improvement in shortness of breath after receiving IV diuretics which were eventually transition to p.o.
diuretic. Will require repeat 2D echocardiogram in 4 weeks as an outpatient with cardiology. Blood pressure was uncontrolled therefore chlorthalidone 25 mg daily was added.
In terms of the atrial flutter which was typical unfortunately unable to provide AV yudith agent as rates were in the 50s therefore it was elected to go towards ANDREW/DCCV. Cardioversion was successful per cardiology. Outpatient cardiology follow-up.
Started on Eliquis 5 mg twice a day with the recommendation to discontinue aspirin.
Due to higher than normal LDL even on max dose Lipitor. It was recommended to stop switch to Crestor 40 mg every night and to discontinue Lipitor altogether.
2d echo
CONCLUSIONS
Normal left ventricular size with mildly reduced systolic function. LVEF 45%.
Global hypokinesis.
Mild concentric left ventricular hypertrophy.
Normal right ventricular size and systolic function.
Mild mitral regurgitation.
Mild tricuspid regurgitation. Normal PASP.
Ectatic ascending aorta (3.9 cm).
Compared to prior echocardiogram on 07/21/2021, LVEF has decreased from 50-55%
to 45% with global hypokinesis. Patient is now in atrial flutter.
CXR
IMPRESSION:
Mild congestive heart failure.
Discharge Plan
-
Patient Disposition: Home with Home Care
Discharge Diagnosis/Procedures: Atrial flutter
Heart failure
Condition: Good
Diet: Low Fat, Low Cholesterol, 2 Gram Sodium, No added salt and Restrict fluids to 48 oz
Activity: As tolerated
Others Tests: Echo 4 weeks- office will call you to arrange
Other Services: Cardiac Rehab
Activity Restrictions/Additional Instructions:
Presented with new onset atrial flutter with associated dyspnea on exertion concerning for acute on chronic HFpEF exacerbation. Significant improvement in shortness of breath after receiving IV diuretics which were eventually transition to p.o.
diuretic. Will require repeat 2D echocardiogram in 4 weeks as an outpatient with cardiology. Blood pressure was uncontrolled therefore chlorthalidone 25 mg daily was added.
In terms of the atrial flutter which was typical unfortunately unable to provide AV yudith agent as rates were in the 50s therefore it was elected to go towards ANDREW/DCCV. Cardioversion was successful per cardiology. Outpatient cardiology follow-up.
Started on Eliquis 5 mg twice a day with the recommendation to discontinue aspirin.
Due to higher than normal LDL even on max dose Lipitor. It was recommended to stop switch to Crestor 40 mg every night and to discontinue Lipitor altogether.
2d echo
CONCLUSIONS
Normal left ventricular size with mildly reduced systolic function. LVEF 45%.
Global hypokinesis.
Mild concentric left ventricular hypertrophy.
Normal right ventricular size and systolic function.
Mild mitral regurgitation.
Mild tricuspid regurgitation. Normal PASP.
Ectatic ascending aorta (3.9 cm).
Compared to prior echocardiogram on 07/21/2021, LVEF has decreased from 50-55%
to 45% with global hypokinesis. Patient is now in atrial flutter.
CXR
IMPRESSION:
Mild congestive heart failure.
Instructions: Heart failure in adults - Discharge instructions, Atrial flutter - Discharge instructions, *PCP/Other [facility] Heart Failure Instructions
Referrals:
Nikia Francisco NP [Specified Professional Personl] - 08/10/24 2:00 pm (post hospital cardiology visit)
Diann Canales PA-C [Family Provider] -
Prescriptions:
New
Eliquis 5 mg Tablet
5 mg PO BID Qty: 60 0RF
chlorthalidone 25 mg Tablet
25 mg PO DAILY Qty: 30 0RF
rosuvastatin 40 mg Tablet
40 mg PO QPM Qty: 30 0RF
Continued
therapeutic multivitamin Tablet
1 tab PO DAILY
isosorbide mononitrate 60 mg Tablet Extended Release 24 Hr
60 mg PO DAILY
ascorbic acid (vitamin C) [Vitamin C] 500 mg Tablet
500 mg PO BID
tamsulosin 0.4 mg Capsule
0.4 mg PO HS
nitroglycerin 0.4 mg Tablet, Sublingual
0.4 mg SUBLINGUAL [id number] PRN (Reason: chest pain)
lisinopril 40 mg Tablet
40 mg PO DAILY
ezetimibe 10 mg Tablet
10 mg PO DAILY
coenzyme Q10 [CoQ-10] 100 mg Capsule
100 mg PO BID
omega 8-slc-bix-fish oil [Fish Oil] 1,000 (120-180) mg Capsule
1 cap PO BID
vitamin K2 100 mcg Capsule
100 mcg PO HS
magnesium oxide 200 mg magnesium Tablet
200 mg PO HS
Discontinued
atorvastatin 80 mg Tablet
80 mg PO DAILY
aspirin 81 mg Tablet,Delayed Release (Dr/Ec)
81 mg PO DAILY
Discharge Orders:
Discharge Patient (As Directed); Ordered 08/05/24
Ordered By: Dougie Reyes
Discharge Date and Time
Print Language: [place]
[2024-08-05 14:55] VITALS: BP 135/71
--- NOTE | 2024-08-06 07:32 | PN.CDI ---
CDI
- -
CDI:
Physician Documentation Request
Admit Date: 08/03/24 20:04
Dear Doctor Eric,
Please review the following and provide your response in the progress notes.
Clinical Indicators:
- 08/05 Discharge Summary 'acute on chronic HFpEF'
- 08/05 PN 'Acute HFmildly reduced EF'
- 08/05 Cardiology 'Heart failure, mEF 45%'
- 08/04 Echo EF 45% 'Mildly reduced left ventricular systolic function'
Please provide further specificity regarding the most likely type and acuity of CHF you are evaluating, treating or monitoring.
Acute HFmrEF
Acute on chronic HFmrEF
Other (please specify)
Use of terms such as suspected, likely, concern for, or probable (associated with a specific diagnosis that is being evaluated, monitored, or treated as if it exists) are acceptable and can be coded in the inpatient setting, when documented at the
time of discharge.
Thank you,
Og Snowden RN
CDI Specialist
Please use your independent medical judgment in providing your response.
--- NOTE | 2024-08-07 13:47 | W.HF.CON ---
Heart Failure
- LV Function
Left ventricular function study result: LV Ejection fraction 41-49%
Ejection Fraction Percentage: 45
- ARNI
Patient already on ARNI: No
Heart Failure ARNI Not Indicated: LV Ejection Fraction >/= 40%
- ACEI/ARB
Patient already on ACEI/ARB: Yes
- Beta Broderick
Patient already on Evidence Based Beta Broderick: No
Heart Failure Evidence Based Beta Broderick Not Indicated: LV Ejection Fraction > 40%
- Mineralocorticord Receptor Antagonist
Patient already on MRA: No
Heart Failure MRA Not Indicated: LV Ejection Fraction > 40%
- SGLT-2 Inhibitor
Patient already on SGLT-2 Inhibitor: No
Heart Failure SGLT-2 Inhibitor Not Indicated: LV Ejection Fraction >40%
- Afib Anticoagulation
Patient already on Anticoagulation for Afib: Yes
- NYHA CHF Classification
NYHA CHF Classification Level: Class III - Symptoms w/ min exertion, interferes w/ nml daily activity
- ACC/AHA Stage
ACC/AHA Stage: Stage C: Symptomatic Heart Failure
== END 2024-08-05 15:53 | disposition home or self-care (01) | DRG 291 ==
LOC: 4 WEST ACU 20:04
PROVIDERS: Internal Medicine; Registered Nurse; ADMITTING PHYSICIAN Hospitalist; ATTENDING PHYSICIAN Hospitalist; EMERGENCY PHYSICIAN Emergency Medicine; FAMILY PHYSICIAN Physician Assistant; OTHER PHYSICIAN Student in an Organized Health Care Education/Training Program
PROC: B24BZZ4 Ultrasonography of Heart with Aorta, Transesophageal (ICD-10-PCS; 2024-08-05)
PROC: 5A2204Z Restoration of Cardiac Rhythm, Single (ICD-10-PCS; 2024-08-05)
DX: I11.0 Hypertensive heart disease with heart failure (principal); I50.21 Acute systolic (congestive) heart failure; I48.3 Typical atrial flutter; Z79.899 Other long term (current) drug therapy; I48.91 Unspecified atrial fibrillation; I25.10 Atherosclerotic heart disease of native coronary artery without angina pectoris; G47.33 Obstructive sleep apnea (adult) (pediatric); N40.0 Benign prostatic hyperplasia without lower urinary tract symptoms; E66.09 Other obesity due to excess calories; Z95.1 Presence of aortocoronary bypass graft; E78.00 Pure hypercholesterolemia, unspecified; Z68.32 Body mass index [BMI] 32.0-32.9, adult; E11.51 Type 2 diabetes mellitus with diabetic peripheral angiopathy without gangrene; I44.7 Left bundle-branch block, unspecified; Z86.73 Personal history of transient ischemic attack (TIA), and cerebral infarction without residual deficits; Z87.891 Personal history of nicotine dependence; Z79.82 Long term (current) use of aspirin; D72.829 Elevated white blood cell count, unspecified; I44.30 Unspecified atrioventricular block; I49.3 Ventricular premature depolarization; Z66 Do not resuscitate; Z82.49 Family history of ischemic heart disease and other diseases of the circulatory system
CPT/HCPCS: 71046; 80048; 80053; 80061; 81003; 82248; 83735; 83880; 84443; 84484; 85025; 92960; 93005; 93306; 93312; 93320; 93325; 99285

== ENCOUNTER → 2024-09-03 11:45 | Outpatient (REF) | payer MEDICARE, OTHER, SELFPAY | LOC: HWRCS 11:45 | PROVIDERS: ATTENDING PHYSICIAN Internal Medicine; FAMILY PHYSICIAN Internal Medicine | DX: I50.9 Heart failure, unspecified (principal); I42.9 Cardiomyopathy, unspecified; I48.92 Unspecified atrial flutter | CPT/HCPCS: 93306 ==

== ENCOUNTER → 2024-11-03 10:57 | Outpatient (REF) | payer MEDICARE, OTHER, SELFPAY ==
[2024-11-03 11:58] LABS: INR 2.78; PT 29.3 Sec (11.4-14.6)
== END ==
LOC: REG 10:57
PROVIDERS: ATTENDING PHYSICIAN Internal Medicine; FAMILY PHYSICIAN Physician Assistant
DX: I48.91 Unspecified atrial fibrillation (principal)
CPT/HCPCS: 36415; 85610

== ENCOUNTER → 2024-11-16 10:59 | Outpatient (REF) | payer MEDICARE, SELFPAY | LOC: REG 10:59 | PROVIDERS: ATTENDING PHYSICIAN Internal Medicine; FAMILY PHYSICIAN Physician Assistant | DX: I48.91 Unspecified atrial fibrillation (principal) | CPT/HCPCS: 36415; 85610 ==